=== PATIENT | male | born 1985 | race Caucasian/White ===

== ENCOUNTER 2025-09-10 08:39 | Outpatient (CLI) | payer OTHER, SELFPAY ==
--- NOTE | ~2025-09-10 | XR_ITS ---
EXAMINATION: XR shoulder RT min 2V, 09/10/2025 8:46 CDT HISTORY: Pain in right shoulder COMPARISON: No comparisons available. Findings: No acute fracture or malalignment. No significant degenerative changes. Soft tissues unremarkable. Impression: No acute fracture or malalignment. Reviewed, dictated and finalized at location P. Impression: No acute fracture or malalignment.
== END 2025-09-10 08:40 | disposition home or self-care (01) ==
LOC: MICIMG 08:41
DX: M25.511 Pain in right shoulder (principal)
CPT/HCPCS: 73030